=== PATIENT | male | born 1950 | race Caucasian/White ===

== ENCOUNTER → 2018-04-19 15:04 | Outpatient (CLI) | payer MEDICARE, SELFPAY ==
--- NOTE | 2018-04-19 15:42 | XR_ITS ---
XR chest 2V HISTORY: ITS.REASON: CHEST PAIN,DYSPNEA ORDERING PHYSICIAN: Gurpreet Osman MD PATIENT AGE: 67 years COMPARISON: 06/18/2015 FINDINGS: The cardiomediastinal silhouette and pulmonary vascularity are within normal limits. The lungs are clear without infiltrates, suspicious nodules, or pleural effusions. No acute bony abnormalities. Levoscoliosis of the midthoracic spine IMPRESSION: No change with no acute finding
[2018-04-19 15:45] LABS: Basophils % 0.3 % (0.1-2.0); Eosinophils # 0.1 K/mm3 (0.0-0.4); Eosinophils % 1.9 % (0.1-12.0); Hematocrit 37.2 % (42.0-52.0); Hemoglobin 13.5 g/dL (14.1-18.0); Lymphocytes # 1.5 K/mm3 (0.7-4.5); Lymphocytes % 26.5 K/mm3 (10-50); Mean Corpuscular HGB Conc 36.4 g/dL (31.8-35.4); Mean Corpuscular Hemoglobin 32.4 pg (27.0-31.2); Mean Corpuscular Volume 89.1 fl (80-94); Mean Platelet Volume 7.3 fl (7.4-10.4); Monocytes # 0.4 K/mm3 (0.1-1.0); Monocytes % 6.5 % (1.7-9.3); Neutrophils # 3.6 K/mm3 (1.8-7.8); Neutrophils % 64.8 % (37.0-80.0); Platelet Count 207 K/mm3 (142-424); Red Blood Count 4.18 M/mm3 (4.60-6.20); Red Cell Distribution Width 13.7 % (11.5-17.5); White Blood Count 5.5 K/mm3 (4.8-10.8)
[2018-04-19 18:24] LABS: CKMB Relative Index 1.1 U/L (0-4.0); Creatine Kinase 90 U/L (39-308); Troponin I < 0.02 ng/ml (0.00-0.06)
== END ==
PROVIDERS: PCP Family Medicine; Visit Provider Family Medicine
DX: R06.00 Dyspnea, unspecified (principal); R07.9 Chest pain, unspecified
CPT/HCPCS: 36415; 71046; 82550; 82553; 83880; 84484; 85025; 93005

== ENCOUNTER → 2018-04-22 09:16 | Outpatient (CLI) | payer MEDICARE, SELFPAY | PROVIDERS: Family Provider Family Medicine; PCP Family Medicine; Visit Provider Family Medicine | DX: R07.89 Other chest pain (principal); R06.02 Shortness of breath | CPT/HCPCS: 93017 ==

== ENCOUNTER 2019-02-10 02:19 | Emergency (ER) | payer MEDICARE, SELFPAY ==
[2019-02-10 02:26] VITALS: PULSE 65; RESP 16; TEMP 36.9; O2SAT 100; BMI 25.0
--- NOTE | 2019-02-10 02:30 | XR_ITS ---
XR chest 2V HISTORY: ITS.REASON: cough, hemoptysis ORDERING PHYSICIAN: Swapnil Song MD PATIENT AGE: 68 years COMPARISON: 04/19/2018 FINDINGS: The cardiomediastinal silhouette and pulmonary vascularity are within normal limits. The lungs are clear without infiltrates, suspicious nodules, or pleural effusions. No acute bony abnormalities. IMPRESSION: No change with no acute finding
[2019-02-10 02:41] LABS: Basophils % 0.2 % (0.1-2.0); Eosinophils # 0.2 K/mm3 (0.0-0.4); Eosinophils % 2.8 % (0.1-12.0); Hematocrit 41.2 % (42.0-52.0); Hemoglobin 13.9 g/dL (14.1-18.0); Lymphocytes # 1.8 K/mm3 (0.7-4.5); Lymphocytes % 33.6 % (10-50); Mean Corpuscular HGB Conc 33.8 g/dL (31.8-35.4); Mean Corpuscular Hemoglobin 29.5 pg (27.0-31.2); Mean Corpuscular Volume 87.2 fl (80-94); Mean Platelet Volume 7.2 fl (7.4-10.4); Monocytes # 0.4 K/mm3 (0.1-1.0); Monocytes % 7.3 % (1.7-9.3); Platelet Count 239 K/mm3 (142-424); Red Blood Count 4.72 M/mm3 (4.60-6.20); Red Cell Distribution Width 13.4 % (11.5-17.5); White Blood Count 5.4 K/mm3 (4.8-10.8)
[2019-02-10 02:52] LABS: Alanine Aminotransferase 37 U/L (12-78); Albumin Level 4.3 gm/dL (3.4-5.0); Albumin/Globulin Ratio 1.2 (1.1-1.8); Alkaline Phosphatase 108 U/L (46-116); Aspartate Amino Transferase 27 U/L (15-37); Bilirubin,Total 0.4 mg/dL (0.2-1.0); Blood Urea Nitrogen 20 mg/dL (7-18); Calcium 9.4 mg/dL (8.5-10.1); Carbon Dioxide 27 mmol/L (21.0-32.0); Chloride 104 mmol/L (98-107); Creatinine Clearance Estimated 59 mL/min (50-200); Creatinine,Serum 1.26 mg/dL (0.70-1.30); Estimated Glomerular Filt Rate 57 ml/min (>60); GFR (African American) 69 ML/MIN (>60); Globulin 3.5 gm/dl (1.3-3.2); Glucose 151 mg/dL (74-106); Sodium 139 mmol/L (136-145); Total Protein,Serum 7.8 gm/dL (6.4-8.2)
--- NOTE | 2019-02-10 03:40 | HMH.EDGENADL ---
ED Disposition Clinical Impression: Hemoptysis Disposition: Home, Self-Care Condition on Discharge: Good Instructions: DI for Hemoptysis Additional Instructions: call pcp this amn Referrals: Gurpreet Osman MD [Primary Care Provider] - - Critical Care Critical Care Time: No Attestation: On 02/10/19, the high probability of a clinically significant, sudden or life threatening deterioration of the following system(s) required my full and direct attention, intervention and personal management. The time I documented below is in addition to time spent performing reported procedures but includes the following listed in this critical care notation. Medical Decision Making - Medical Records Medical records reviewed: Yes: I reviewed the patient's medical records. - Declan Inquiry Pt receiving controlled substance: No Vital Signs: 02/10/19 02:26 Temperature 98.5 F Temperature Source Oral Pulse Rate [Right Brachial] 65 Respiratory Rate 16 02 Sat by Pulse Oximetry 100 Oxygen Delivery Method Room Air - Lab Data Lab results reviewed: Yes: I reviewed the patient's lab results. Lab Results 02/10/19 02:30: WBC 5.4, RBC 4.72, Hgb 13.9 L, Hct 41.2 L, MCV 87.2, MCH 29.5, MCHC 33.8, RDW 13.4, Plt Count 239, MPV 7.2 L, Neut % (Auto) 56.0, Lymph % (Auto) 33.6, Luce % (Auto) 7.3, Eos % (Auto) 2.8, Baso % (Auto) 0.2, Neut # (Auto) 3.0, Lymph # (Auto) 1.8, Luce # (Auto) 0.4, Eos # (Auto) 0.2, Baso # (Auto) 0.0 02/10/19 02:30: Sodium 139, Potassium 4.0, Chloride 104, Carbon Dioxide 27, Anion Gap 12.0, BUN 20 H, Creatinine 1.26, Estimated Creat Clear 59, Estimated GFR 57 L, Est GFR ( Amer) 69, Glucose 151 H, Calcium 9.4, Total Bilirubin 0.4, AST 27, ALT 37, Alkaline Phosphatase 108, Total Protein 7.8, Albumin 4.3, Globulin 3.5 H, Albumin/Globulin Ratio 1.2 Result diagrams: 02/10/19 02:30 02/10/19 02:30 Orders (Tests/Meds): ORDERS Category Date Time Status Chest XR 2 view (NOT portable) [XR chest 2V] Stat Exams 02/10/19 02:30 Taken - Radiology Data #1 Image(s): Chest Image Reviewed: Yes I reviewed the patient's radiology image Preliminary Findings: Abnormal (perihilar ) General Adult HPI - General Chief complaint: PAIN Stated complaint: woke up spitting up blood Time Seen by Provider: 02/10/19 02:30 Mode of Arrival: Ambulatory Limitations: No Limitations Description of Symptoms (Recalled from ER Triage Doc. by RN): Pt advises he was asleep and woke up and went to the bathroom and coughed and had blood come up. Thinks he may have had a nose bleed that went down the back of his throat - History of Present Illness HPI narrative: possible nosebleed with no sig cough and presents after spitting up mod amt of blood Onset (ago): hour(s) Severity: moderate Associated symptoms: denies other symptoms - Related Data Allergies Allergy/AdvReac Type Severity Reaction Status Date / Time No Known Allergies Allergy Verified 02/10/19 02:30 [facility] History - Hepatitis A Screen Drug use history?: No High risk sexual behaviors?: No History of sexually transmitted infection?: No Currently employed?: No Childcare worker?: No Do you have indoor plumbing?: Yes Do you have electricity?: Yes Attestation statement:: This patient has been screened for Hepatitis A risk factors. I have reviewed the patient's past medical history: Yes ROS Obtained: Yes All systems reviewed & no additional complaints - Constitutional Constitutional: Denies fever(s) - Eyes Eyes: Denies change in vision - ENT Ears, Nose, Mouth, and Throat: Reports as per HPI, Reports epistaxis, Denies pain with swallowing - Cardiovascular Cardiovascular: Denies chest pain - Respiratory Respiratory: Yes cough, Yes coughing up blood - Gastrointestinal Gastrointestingal: Denies: abdominal pain - Genitourinary Male Genitourinary: Denies hematuria - Musculoskeletal Musculoskeletal: Denies joint swelling
--- NOTE | 2019-02-10 03:43 | ED_ITS ---
ED Disposition Clinical Impression: Hemoptysis Disposition: Home, Self-Care Condition on Discharge: Good Instructions: DI for Hemoptysis Additional Instructions: call pcp this amn Referrals: Gurpreet Osman MD [Primary Care Provider] - - Critical Care Critical Care Time: No Attestation: On 02/10/19, the high probability of a clinically significant, sudden or life threatening deterioration of the following system(s) required my full and direct attention, intervention and personal management. The time I documented below is in addition to time spent performing reported procedures but includes the following listed in this critical care notation. Medical Decision Making - Medical Records Medical records reviewed: Yes: I reviewed the patient's medical records. - Declan Inquiry Pt receiving controlled substance: No Vital Signs: 02/10/19 02:26 Temperature 98.5 F Temperature Source Oral Pulse Rate [Right Brachial] 65 Respiratory Rate 16 02 Sat by Pulse Oximetry 100 Oxygen Delivery Method Room Air - Lab Data Lab results reviewed: Yes: I reviewed the patient's lab results. Lab Results 02/10/19 02:30: WBC 5.4, RBC 4.72, Hgb 13.9 L, Hct 41.2 L, MCV 87.2, MCH 29.5, MCHC 33.8, RDW 13.4, Plt Count 239, MPV 7.2 L, Neut % (Auto) 56.0, Lymph % (Auto) 33.6, [place] % (Auto) 7.3, Eos % (Auto) 2.8, Baso % (Auto) 0.2, Neut # (Auto) 3.0, Lymph # (Auto) 1.8, [place] # (Auto) 0.4, Eos # (Auto) 0.2, Baso # (Auto) 0.0 02/10/19 02:30: Sodium 139, Potassium 4.0, Chloride 104, Carbon Dioxide 27, Anion Gap 12.0, BUN 20 H, Creatinine 1.26, Estimated Creat Clear 59, Estimated GFR 57 L, Est GFR ( Amer) 69, Glucose 151 H, Calcium 9.4, Total Bilirubin 0.4, AST 27, ALT 37, Alkaline Phosphatase 108, Total Protein 7.8, Albumin 4.3, Globulin 3.5 H, Albumin/Globulin Ratio 1.2 Result diagrams: 02/10/19 02:30 02/10/19 02:30 Orders (Tests/Meds): ORDERS Category Date Time Status Chest XR 2 view (NOT portable) [XR chest 2V] Stat Exams 02/10/19 02:30 Taken - Radiology Data #1 Image(s): Chest Image Reviewed: Yes I reviewed the patient's radiology image Preliminary Findings: Abnormal (perihilar ) General Adult HPI - General Chief complaint: PAIN Stated complaint: woke up spitting up blood Time Seen by Provider: 02/10/19 02:30 Mode of Arrival: Ambulatory Limitations: No Limitations Description of Symptoms (Recalled from ER Triage Doc. by RN): Pt advises he was asleep and woke up and went to the bathroom and coughed and had blood come up. Thinks he may have had a nose bleed that went down the back of his throat - History of Present Illness HPI narrative: possible nosebleed with no sig cough and presents after spitting up mod amt of blood Onset (ago): hour(s) Severity: moderate Associated symptoms: denies other symptoms - Related Data Allergies Allergy/AdvReac Type Severity Reaction Status Date / Time No Known Allergies Allergy Verified 02/10/19 02:30 [facility] History - Hepatitis A Screen Drug use history?: No High risk sexual behaviors?: No History of sexually transmitted infection?: No Currently employed?: No Childcare wo
[2019-02-10 03:58] VITALS: BP 133/83; PULSE 61; RESP 17; TEMP 36.9; O2SAT 98
== END 2019-02-10 03:58 | disposition home or self-care (01) ==
PROVIDERS: Emergency Provider Emergency Medicine; PCP Family Medicine
DX: R04.2 Hemoptysis (principal)
CPT/HCPCS: 71046; 80053; 85025; 99282

== ENCOUNTER → 2019-10-24 09:24 | Outpatient (POV) | payer MEDICARE, SELFPAY | PROVIDERS: Visit Provider Dermatology | DX: Z00.00 Encounter for general adult medical examination without abnormal findings (principal) ==

== ENCOUNTER 2020-08-30 09:53 | Emergency (ER) | payer MEDICARE, SELFPAY ==
[2020-08-30 10:30] VITALS: BP 136/90; PULSE 63; RESP 18; TEMP 36.6; O2SAT 97; BMI 24.5
--- NOTE | 2020-08-30 10:47 | HMH.EDUTC ---
[facility] [place] Disposition Clinical Impression: Exposure to COVID-19 virus Disposition: Home, Self-Care Condition on Discharge: Good Instructions: Preventing the Spread of Coronavirus Discharge Instructions Additional Instructions: Drink plenty of fluids. Take tylenol for pain or fever. Return if you begin to have difficulty breathing. Follow up with your regular doctor. GO TO THE ER FOR ANY WORSENING SYMPTOMS Referrals: Gurpreet Osman MD [Primary Care Provider] - Time of Disposition: 10:50 Medical Decision Making - Medical Records Medical records reviewed: No: I reviewed the patient's medical records. - Declan Inquiry Pt receiving controlled substance: No Vital Signs: 08/30/20 10:30 08/30/20 10:58 Temperature 97.8 F 97.8 F Temperature Source Oral Pulse Rate 63 Pulse Rate [Right Brachial] 63 Respiratory Rate 18 18 Blood Pressure 136/90 Blood Pressure [Right Arm] 136/90 Blood Pressure Mean [Right Arm] 105 Blood Pressure Source [Right Arm] Automatic Cuff Blood Pressure Position [Right Arm] Sitting 02 Sat by Pulse Oximetry 97 Oxygen Delivery Method Room Air Orders (Tests/Meds): ORDERS Category Date Time Status Covid-19 Nasal PCR ([facility]) Routine Lab 08/30/20 10:35 Ordered [facility] [place] HPI - General Stated complaint: wants covid test Time Seen by Provider: 08/30/20 10:48 - History of Present Illness Provider Complaint: He is here wanting a covid test. He denies any exposure or symptoms, but his kids wanted him to be tested. - Related Data Home Medications Medication Instructions Recorded Confirmed Gabapentin [Gabapentin 300mg Cap] 300 mg PO TID 12/12/19 12/12/19 Simvastatin 20 mg PO DAILY 12/12/19 12/12/19 hydrOXYzine pamoate [Vistaril 25mg 25 mg PO NEEDED PRN 12/12/19 12/12/19 capsule] lisinopriL [Lisinopril 10mg Tab] 10 mg PO DAILY 12/12/19 12/12/19 Previous Rx's Medication Instructions Recorded levoFLOXacin [Levaquin 500mg 500 mg PO DAILY #9 tab 12/12/19 tab] Allergies Allergy/AdvReac Type Severity Reaction Status Date / Time No Known Allergies Allergy Verified 02/10/19 02:30 [facility] History - Hepatitis A Screen Attestation statement:: This patient has been screened for Hepatitis A risk factors. I have reviewed the patient's past medical history: Yes Medical History: Reports:: Diabetes Mellitus Type 2 - Social History Alcohol Intake: never Occupational Status: employed ROS Obtained: Yes All systems reviewed & no additional complaints - Constitutional Constitutional: Reports system reviewed and no additional complaints, except as docu - Eyes Eyes: Reports system reviewed and no additional complaints, except as docu - ENT Ears, Nose, Mouth, and Throat: Reports system reviewed and no additional complaints, except as docu - Cardiovascular Cardiovascular: Reports system reviewed and no additional complaints, except as docu - Respiratory Respiratory: Yes system reviewed and no additional complaints, except as docu - Gastrointestinal Gastrointestingal: Reports: system reviewed and no additional complaints, except as docu Physical Exam - General General appearance: alert, in no apparent distress - Head Head exam: atraumatic, normocephalic, normal inspection - Eye Eye exam: Present: normal appearance, PERRL, EOMI - ENT ENT exam: Present: normal exam, normal oropharynx, mucous membranes moist, TM's normal bilaterally, normal external ear exam - Neck Neck exam: Present: normal inspection, full ROM, trachea midline. Absent: meningismus, lymphadenopathy - Chest Chest inspection: Present: normal inspection, symmetric chest wall rise. Absent: tenderness - Respiratory Respiratory exam: Present: normal lung sounds bilaterally. Absent: respiratory distress - Cardiovascular Cardiovascular exam: Present: regular rate, normal rhythm. Absent: JVD - Abdominal Exam Abdominal exam: Present: soft, normal bowel
[2020-08-30 10:58] VITALS: BP 136/90; PULSE 63; RESP 18; TEMP 36.6; O2SAT 97
== END 2020-08-30 11:00 | disposition home or self-care (01) ==
PROVIDERS: Emergency Provider Nurse Practitioner Family; PCP Family Medicine
DX: Z20.828 Contact with and (suspected) exposure to other viral communicable diseases (principal)
CPT/HCPCS: G0463; 99201; U0003

== ENCOUNTER → 2021-05-01 08:31 | Outpatient (CLI) | payer MEDICARE, SELFPAY ==
[2021-05-01 10:21] LABS: Alanine Aminotransferase 22 U/L (12-78); Albumin Level 4.3 g/dl (3.5-5.0); Albumin/Globulin Ratio 1.7 (1.1-1.8); Alkaline Phosphatase 78 U/L (38-126); Anion Gap 14.5 mEq/L (5-15); Aspartate Amino Transferase 27 U/L (17-59); Bilirubin,Total 0.7 mg/dl (0.2-1.3); Blood Urea Nitrogen 20 mg/dl (9-20); Calcium 9.4 mg/dl (8.4-10.2); Carbon Dioxide 28 mmol/L (22.0-30.0); Chloride 105 mmol/L (98-107); Chol/HDL Ratio 3.4 (1-3.5); Cholesterol 148 mg/dl (140-200); Estimated Glomerular Filt Rate 66 ml/min (>60); GFR (African American) 80 ML/MIN (>60); Globulin 2.5 g/dL (1.3-3.2); Glucose 142 mg/dl (74-100); HDL Cholesterol 43 mg/dl (40-60); Potassium 5.5 mmoL/L (3.5-5.1); Sodium 142 mmol/L (136-145); Total Protein,Serum 6.8 g/dl (6.3-8.2); Triglycerides 192 mg/dl (30-150); VLDL Cholesterol 38 mg/dL (0-40)
[2021-05-01 10:32] LABS: Direct LDL Cholesterol 57.21 mg/dL (100-129)
[2021-05-01 10:54] LABS: Prostate Specific Ag, Diagnost < 0.064 ng/ml (0.0-4.0)
[2021-05-01 11:15] LABS: Hemoglobin A1C 6.7 % (4.0-6.0)
== END ==
PROVIDERS: Visit Provider Family Medicine
DX: E11.42 Type 2 diabetes mellitus with diabetic polyneuropathy; I10 Essential (primary) hypertension; E78.5 Hyperlipidemia, unspecified; Z85.46 Personal history of malignant neoplasm of prostate
CPT/HCPCS: 36415; 80053; 80061; 83036; 84153

== ENCOUNTER → 2021-10-28 10:10 | Outpatient (CLI) | payer MEDICARE, SELFPAY ==
[2021-10-28 10:53] LABS: Hemoglobin A1C 6.8 % (4.0-6.0)
[2021-10-28 11:14] LABS: Chloride 102 mmol/L (98-107); Potassium 5.1 mmoL/L (3.5-5.1); Sodium 140 mmol/L (136-145)
[2021-10-28 11:17] LABS: Alanine Aminotransferase 18 U/L (12-78); Albumin Level 4.6 g/dl (3.5-5.0); Albumin/Globulin Ratio 1.8 (1.1-1.8); Alkaline Phosphatase 77 U/L (38-126); Anion Gap 13.1 mEq/L (5-15); Aspartate Amino Transferase 29 U/L (17-59); Bilirubin,Total 0.8 mg/dl (0.2-1.3); Blood Urea Nitrogen 16 mg/dl (9-20); Calcium 9.6 mg/dl (8.4-10.2); Carbon Dioxide 30 mmol/L (22.0-30.0); Cholesterol 154 mg/dl (140-200); Estimated Glomerular Filt Rate 74 ml/min (>60); GFR (African American) 89 ML/MIN (>60); Globulin 2.6 g/dL (1.3-3.2); Glucose 143 mg/dl (74-100); Total Protein,Serum 7.2 g/dl (6.3-8.2); Triglycerides 217 mg/dl (30-150); VLDL Cholesterol 43 mg/dL (0-40)
[2021-10-28 11:18] LABS: Chol/HDL Ratio 3.3 (1-3.5); HDL Cholesterol 47 mg/dl (40-60)
[2021-10-28 11:29] LABS: Direct LDL Cholesterol 69.52 mg/dL (100-129)
== END ==
PROVIDERS: Visit Provider Family Medicine
DX: I10 Essential (primary) hypertension (principal); E11.9 Type 2 diabetes mellitus without complications; E78.5 Hyperlipidemia, unspecified
CPT/HCPCS: 36415; 80053; 80061; 83036

== ENCOUNTER → 2022-05-01 08:51 | Outpatient (CLI) | payer MEDICARE, SELFPAY ==
[2022-05-01 10:04] LABS: Alanine Aminotransferase 22 U/L (12-78); Albumin Level 4.2 g/dl (3.5-5.0); Albumin/Globulin Ratio 1.8 (1.1-1.8); Alkaline Phosphatase 83 U/L (38-126); Anion Gap 10.7 mEq/L (5-15); Aspartate Amino Transferase 29 U/L (17-59); Bilirubin,Total 0.5 mg/dl (0.2-1.3); Blood Urea Nitrogen 16 mg/dl (9-20); Calcium 9.8 mg/dl (8.4-10.2); Carbon Dioxide 30 mmol/L (22.0-30.0); Chloride 103 mmol/L (98-107); Chol/HDL Ratio 2.2 (1-3.5); Cholesterol 117 mg/dl (140-200); Estimated Glomerular Filt Rate 73 ml/min (>60); GFR (African American) 89 ML/MIN (>60); Globulin 2.4 g/dL (1.3-3.2); Glucose 124 mg/dl (74-100); HDL Cholesterol 53 mg/dl (40-60); Potassium 4.7 mmoL/L (3.5-5.1); Sodium 139 mmol/L (136-145); Total Protein,Serum 6.6 g/dl (6.3-8.2); Triglycerides 108 mg/dl (30-150); VLDL Cholesterol 22 mg/dL (0-40)
[2022-05-01 10:08] LABS: Hemoglobin A1C 6.5 % (4.0-6.0)
[2022-05-01 10:15] LABS: Direct LDL Cholesterol 45.36 mg/dL (100-129)
== END ==
PROVIDERS: PCP Family Medicine; Visit Provider Family Medicine
DX: I10 Essential (primary) hypertension (principal); E11.9 Type 2 diabetes mellitus without complications; E78.5 Hyperlipidemia, unspecified
CPT/HCPCS: 36415; 80053; 80061; 82043; 83036

== ENCOUNTER → 2022-10-29 08:06 | Outpatient (CLI) | payer MEDICARE, SELFPAY ==
[2022-10-29 08:48] LABS: Hemoglobin A1C 7.1 % (4.0-6.0)
[2022-10-29 08:54] LABS: Microalbumin < 6.000 mg/L (0-16.7)
[2022-10-29 08:59] LABS: Alanine Aminotransferase 24 U/L (12-78); Albumin Level 4.3 g/dl (3.5-5.0); Albumin/Globulin Ratio 1.7 (1.1-1.8); Alkaline Phosphatase 84 U/L (38-126); Anion Gap 13.2 mEq/L (5-15); Aspartate Amino Transferase 27 U/L (17-59); Bilirubin,Total 0.5 mg/dl (0.2-1.3); Blood Urea Nitrogen 18 mg/dl (9-20); Calcium 9.2 mg/dl (8.4-10.2); Carbon Dioxide 29 mmol/L (22.0-30.0); Chloride 103 mmol/L (98-107); Chol/HDL Ratio 2.7 (1-3.5); Cholesterol 134 mg/dl (140-200); Estimated Glomerular Filt Rate 73 ml/min (>60); GFR (African American) 89 ML/MIN (>60); Globulin 2.5 g/dL (1.3-3.2); Glucose 153 mg/dl (74-100); HDL Cholesterol 50 mg/dl (40-60); Potassium 5.2 mmoL/L (3.5-5.1); Sodium 140 mmol/L (136-145); Total Protein,Serum 6.8 g/dl (6.3-8.2); Triglycerides 113 mg/dl (30-150); VLDL Cholesterol 23 mg/dL (0-40)
[2022-10-29 09:10] LABS: Direct LDL Cholesterol 55.76 mg/dL (100-129)
[2022-10-29 09:30] LABS: Prostate Specific Ag, Diagnost < 0.064 ng/ml (0.0-4.0)
== END ==
PROVIDERS: PCP Family Medicine; Visit Provider Family Medicine
DX: I10 Essential (primary) hypertension (principal); E11.42 Type 2 diabetes mellitus with diabetic polyneuropathy; E78.5 Hyperlipidemia, unspecified; Z85.46 Personal history of malignant neoplasm of prostate
CPT/HCPCS: 36415; 80053; 80061; 82043; 83036; 84153

== ENCOUNTER 2024-12-25 10:53 | Outpatient (CLI) | payer MEDICARE, SELFPAY ==
--- NOTE | 2024-12-25 10:58 | XR_ITS ---
FINAL REPORT CLINICAL HISTORY: hip pain COMPARISON: None FINDINGS: RIGHT HIP 3 views of the right hip demonstrate no acute fracture or dislocation. Mild degenerative changes present in the right hip, with normal bony mineralization. The visualized bony structures are well aligned. No soft tissue abnormality is seen. IMPRESSION: Mild degenerative changes right hip with normal bony mineralization. Reviewed, Interpreted and Dictated by Keeley Holder MD Transcribed by Kristy White Authenticated and [facility]
--- NOTE | 2024-12-25 10:58 | XR_ITS ---
FINAL REPORT CLINICAL HISTORY: LEG PAIN COMPARISON: None FINDINGS: LEFT HIP: Two views of the left hip demonstrate no acute fracture or dislocation. Mild degenerative changes present with normal bony mineralization. The visualized bony structures are well aligned. No soft tissue abnormality is seen. IMPRESSION: Mild degenerative changes with normal bony mineralization. Reviewed, Interpreted and Dictated by Keeley Holder MD Transcribed by Kristy White Authenticated and [facility]
== END 2024-12-25 23:59 | disposition home or self-care (01) ==
LOC: RAD 10:56
PROVIDERS: PCP Family Medicine; Visit Provider Nurse Practitioner Family
DX: M25.551 Pain in right hip (principal); M25.552 Pain in left hip; M79.606 Pain in leg, unspecified
CPT/HCPCS: 73502